=== PATIENT | female | born 1960 | race Caucasian/White ===

== ENCOUNTER 2016-12-24 01:25 | Emergency (ER) | payer MEDICARE, MEDICAID ==
[2016-12-24 01:59] LABS: % LYMPHOCYTES 13.7 % (20.0-50.0); % MONOCYTES 2.3 % (2.0-10.0); HEMATOCRIT 41.4 % (35.0-45.0); HEMOGLOBIN 13.8 gm/dL (11.7-15.5); MEAN CELL VOLUME 90.9 fl (81-100); MEAN CORPUSCULAR HEMOGLOBIN 30.4 pg (27.0-31.0); MEAN CORPUSCULAR HGB CONC 33.5 pg (28.0-36.0); MEAN PLATELET VOLUME 8.7 fl; NEUTROPHILE ABSOLUTE 8.1 Th/cmm (1.8-8.0); PLATELET COUNT 192 Th/cmm (150-400); RED BLOOD COUNT 4.55 Mil/cmm (3.80-5.10); RED CELL DISTRIBUTION WIDTH 12.9 % (11.5-20.0); WHITE BLOOD COUNT 9.7 Th/cmm (4.8-10.8)
[2016-12-24 02:06] LABS: PROTHROMBIN TIME (TEST) 10.4 SECONDS (9.5-11.5)
[2016-12-24 02:10] LABS: ALB/GLOB RATIO 1.4 (1.0-1.8); ANION GAP 15.3 (7.0-16.0); BILIRUBIN,TOTAL 0.5 mg/dL (0.3-1.0); CARBON DIOXIDE 25.7 mEq/L (21.0-31.0); CREATININE - SERUM 1.6 mg/dL (0.6-1.2)
[2016-12-24] MEDS ORDERED: Sodium Chloride 0.45% 500 ML IV ONE (02:10)
[2016-12-24] MEDS ORDERED: HYDROmorphone 1 mg/mL 1mL Syr IVP STA ×2 (02:24→04:51)
[2016-12-24] MEDS ORDERED: HYDROmorphone 1 mg/mL 1mL Syr ONE ×3 (02:29→05:47)
--- NOTE | 2016-12-24 02:31 | ED Physician Chart ---
Chief Complaint/HPI - Patient Information Date Seen:: 12/24/16 Time Seen:: 01:40 Chief Complaint:: right leg pain History of Present Illness:: this is a 56 yo female with vomiting and right lower leg pain that has been on and off for years. she denies any recent trauma but had the left knee replaced. she is diabetic and hypertensive with high cholesterol. Allergies:: Allergies Allergy/AdvReac Type Severity Reaction Status Date / Time No Known Allergies Allergy Verified 12/24/16 01:41 Vitals:: Vital Signs - 8 hr 12/24/16 01:30 Temp 98.0 F HR 78 RR 18 BP 138/74 O2 Sat % 98 Historian:: Patient Review:: Nurse's Note Reviewed Review of Systems - Review of Systems General/Constitutional: No fever, No chills, Weight loss, No weakness, No diaphoresis, No edema, No loss of appetite Skin: No skin lesions, No rash, No bruising Head: No headache, No light-headedness Eyes: No loss of vision, No pain, No diplopia ENT: No earache, No nasal drainage, No sore throat, No tinnitus Neck: No neck pain, No swelling, No thyromegaly, No stiffness, No mass noted Cardio Vascular: No chest pain, No palpitations, No PND, No orthopnea, No edema Pulmonary: No SOB, No cough, No sputum, No wheezing GI: No nausea, No vomiting, No diarrhea, No pain, No melena, No hematochezia, No constipation, No hematemesis G/U: No dysuria, No frequency, No hematuria Musculoskeletal: No bone or joint pain, No back pain, No muscle pain, Other ( right calf area pain on palpation.) Endocrine: No polyuria, No polydipsia Psychiatric: No prior psych history, No depression, No anxiety, No suicidal ideation Hematopoietic: No bruising, No lymphadenopathy Allergic/Immuno: No urticaria, No angioedema Neurological: No syncope, No focal symptoms, No weakness, No paresthesia, No headache, No seizure, No dizziness, No confusion, No vertigo Past Medical History - Past Medical History Obtainable: Yes Past Medical History: HTN, DM, Dyslipidemia Family History: None, Cancer (mother esophgus ca and father thyroid ca.) Social History: Smoker, No Alcohol, No Drug Use Surgical History: Appendectomy, Cholecystectomy, other (total knee replacement) Psychiatricy History: None Medication: Reviewed Family Medical History - Family Member Mother History Unknown: Yes Hx Family Cancer: Yes (ESOPHAGEAL CA) Physical Exam - Physical Examination General/Constitutional: Awake, Well-developed, well-nourished, Alert, No distress, GCS 15, Non-toxic appearing, Ambulatory Head: Atraumatic Eyes: Lids, conjuctiva normal, PERRL, EOMI Skin: Nl inspection, No rash, No skin lesions, No ecchymosis, Well hydrated, No lymphadenopathy ENMT: External ears, nose nl, Nasal exam nl, Lips, teeth, gums nl Neck: Nontender, Full ROM w/o pain, No JVD, No nuchal rigidity, No bruit, No mass, No stridor Respiratory: Nl effort/Exclusion, Clear to Auscultation, No Wheeze/Rhonchi/Rales Cardio Vascular: RRR, No murmur, gallop, rubs, NL S1 S2 GI: No tenderness/rebounding/guarding, No organomegaly, No hernia, Normal BS's, Nondistended, No mass/bruits, No McBurney tenderness : No CVA tenderness Extremities: Full ROM, normal strength in all extremities, No edema, Normal digits & nails Other Extremities comments:: right calf is tender with painful rom . Neuro/Psych: Alert/oriented, DTR's symmetric, Normal sensory exam, Normal motor strength, Judgement/insight normal, Mood normal, Normal gait, No focal deficits Misc: normal gait, Normal back, No paraspinal tenderness Labs/Radiology/EKG Results - Lab Results Results: Laboratory Tests 12/24/16 12/24/16 12/24/16 01:45 01:45 01:45 WBC 9.7 RBC 4.55 Hgb 13.8 Hct 41.4 MCV 90.9 MCH 30.4 MCHC Differential 33.5 RDW 12.9 Plt Count 192 MPV 8.7 Neutrophils % 83.0 H Lymphocytes % 13.7 L Monocytes % 2.3 Eosinophils % 0.0 Basophils % 1.0 PT 10.4 INR 1.00 PTT (Actin FS) 24.6 L Sodium 140 Potassium 4.0 Chloride 103 Carbon Dioxide 25.7 Anion Gap 15.3 BUN 40 H Creatinine 1.6 H Est GFR ( Amer) 42.9 Est GFR (Non-Af Amer) 35.4 BUN/Creatinine Ratio 25.0 Glucose 234 H Calcium 10.0 Total Bilirubin 0.5 AST 16 ALT 16 Alkaline Phosphatase 63 Total Protein 7.6 Albumin 4.4 Globulin 3.2 Albumin/Globulin Ratio 1.4 ED Septic Shock - . Is Septic Shock (SBP<90, OR Lactate>4 mmol\L) present?: No - <6hrs of presentation: Vital Signs: Vital Signs - 8 hr 12/24/16 01:30 Temp 98.0 F HR 78 RR 18 BP 138/74 O2 Sat % 98 Reassessment (Disposition) - Reassessment Reassessment Condition:: Improved - Diagnosis Diagnosis:: RIGHT LEG PAIN BUERGER'S DISEASE - Aftercare/Follow up Instructions Aftercare/Follow-Up Instructions:: Counseled pt regarding lab results/diagnosis & need follow up, Refer to Discharge Instructions, Counseled pt & family regarding lab results/diagnosis & need follow up - Patient Disposition Discharge/Transfer:: Home Condition at Disposition:: Improved ED Discharge Plan - Patient Disposition Admit/Discharge/Transfer: PT DISCHARGED HOME Condition at Disposition: Improved Instructions: Chronic Pain Management, Nausea, Adult Additional Instructions: follow up with primary doctor within 1-2 days. take medications as prescribed. THE PATIENT WAS TOLD TO GO TO A HOSPITAL THAT HAS A VASCULAR SURGERY TEAM IF HER SYMPTOM PERSIST. SHE WAS ALSO TOLD THAT IF SHE STOPS SMOKING HER SYMPTOMS MIGHT CHLOE.
--- NOTE | 2016-12-24 09:52 | Diagnostic Imaging Report ---
Right lower extremity DVT study HISTORY: Pain COMPARISON: None Technique: Longitudinal and transverse sonographic images of the right lower extremity veins were obtained with doppler analysis. FINDINGS: Exam was limited due to patient's medical condition. There is normal compressibility, augmentation and phasicity of the right common femoral, superficial femoral, popliteal, and posterior tibial veins. No thrombus is visualized. IMPRESSION: No evidence of thrombus within the right lower extremity veins.
--- NOTE | 2016-12-24 11:35 | Diagnostic Imaging Report ---
Right lower extremity arterial study HISTORY: Pain COMPARISON: None Technique: Longitudinal and transverse sonographic images of the right lower extremity arteries were obtained with doppler analysis. FINDINGS: Exam is limited due to patient's medical condition. There is triphasic flow extending from the right common femoral artery to the right dorsalis pedis artery. Right ankle-brachial index is 1.0. Generalized intimal thickening and mild atherosclerosis is noted. IMPRESSION: Mild generalized atherosclerotic vascular disease. No evidence of hemodynamically significant stenosis.
== END 2016-12-24 06:15 | disposition home or self-care (01) ==
LOC: ER 01:25
DX: M79.661 Pain in right lower leg (principal); N02.8 Recurrent and persistent hematuria with other morphologic changes; I10 Essential (primary) hypertension; E11.9 Type 2 diabetes mellitus without complications; E78.5 Hyperlipidemia, unspecified; F17.200 Nicotine dependence, unspecified, uncomplicated; Z90.49 Acquired absence of other specified parts of digestive tract
CPT/HCPCS: 99285; 96361; 96374; 96375; 96376; 93926; 93971; 84484; 36415; 85025; 85610; 83036; 80053; J2405 ×2; J1170